=== PATIENT | female | born 1955 | race Caucasian/White ===

== ENCOUNTER 2024-10-13 12:17 | Emergency (ER) | payer MEDICARE ==
[~2024-10-13] VITALS: Ht 157.5 cm; Wt 71.7 kg
[2024-10-13 12:18] VITALS: PULSE 70; RESP 16; TEMP 96.9; O2SAT 98
== END 2024-10-13 13:53 | disposition home or self-care (01) ==
LOC: EDBD 12:44 → FSED 12:44
DX: S93.492A Sprain of other ligament of left ankle, initial encounter (principal); S20.412A Abrasion of left back wall of thorax, initial encounter; M54.50 Low back pain, unspecified; W01.0XXA Fall on same level from slipping, tripping and stumbling without subsequent striking against object, initial encounter; Y92.89 Other specified places as the place of occurrence of the external cause; I10 Essential (primary) hypertension; E11.9 Type 2 diabetes mellitus without complications; E78.5 Hyperlipidemia, unspecified
CPT/HCPCS: 99282